=== PATIENT | male | born 1995 | race Caucasian/White ===

== ENCOUNTER 2016-12-04 20:29 | Emergency (ER) | payer OTHER ==
[~2016-12-04] VITALS: Ht 188 cm; Wt 97.5 kg
[2016-12-04 20:38] VITALS: Ht 188 cm; Wt 97.5 kg
[2016-12-04] MEDS ORDERED: IBUPROFEN 600 MG TAB PO ONE (22:00)
[2016-12-04] MEDS ORDERED: DIPHTH/TET/ACEL PERTUSS (ADULT) 0.5 ML VIAL IM* ONE (22:00)
[2016-12-04] MEDS ORDERED: LIDOCAINE 1% (MDV) 20 ML INJ SC ONE (22:00)
[2016-12-04] MEDS ORDERED: LIDOCAINE 2%/EPI MPF (SDV) 20 ML VIAL ONE (22:25)
[2016-12-04] MEDS ORDERED: ONDANSETRON (ODT) 4 MG TAB ODT STA (22:42)
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
[2016-12-04] MEDS ORDERED: NAPR-260 PO (23:18)
[2016-12-04] MEDS ORDERED: BACI28.34 TOP (23:19)
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
== END 2016-12-04 23:51 | disposition home or self-care (01) ==
LOC: FTE 20:29
DX: S01.81XA Laceration without foreign body of other part of head, initial encounter (principal); F17.210 Nicotine dependence, cigarettes, uncomplicated; R11.10 Vomiting, unspecified; Y04.8XXA Assault by other bodily force, initial encounter; Z23 Encounter for immunization
CPT/HCPCS: 12014; 70450; 72125; 90471; 90715; Z7502; Z7610

== ENCOUNTER 2016-12-07 10:54 | Emergency (ER) | payer OTHER ==
[~2016-12-07] VITALS: Ht 177.8 cm; Wt 100.0 kg
[~2016-12-07 10:54] MED LIST: BACI28.34 TOP; NAPR-260 PO
[2016-12-07 11:00] VITALS: Ht 177.8 cm; Wt 100.0 kg
[2016-12-07] MEDS ORDERED: LIDOCAINE 1% (MDV) 20 ML INJ SC ONE (12:30)
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
== END 2016-12-07 12:58 | disposition left against medical advice (07) ==
LOC: FTE 10:54
DX: S00.83XA Contusion of other part of head, initial encounter (principal); F17.210 Nicotine dependence, cigarettes, uncomplicated; X58.XXXA Exposure to other specified factors, initial encounter; Y92.9 Unspecified place or not applicable
CPT/HCPCS: Z7502; Z7610; 99282

== ENCOUNTER 2016-12-17 10:00 | Emergency (ER) | payer OTHER ==
[~2016-12-17] VITALS: Ht 188 cm; Wt 101.0 kg
[2016-12-17 10:02] VITALS: Ht 188 cm; Wt 101.0 kg
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
== END 2016-12-17 11:06 | disposition home or self-care (01) ==
LOC: FTE 10:00
DX: Z48.02 Encounter for removal of sutures (principal); F17.210 Nicotine dependence, cigarettes, uncomplicated
CPT/HCPCS: 99281